=== PATIENT | female | born 1950 | race Two or more races ===

== ENCOUNTER 2021-08-27 01:43 | Emergency (ER) | payer MEDICARE, OTHER ==
[~2021-08-27] VITALS: Ht 162.6 cm; Wt 71.2 kg
--- NOTE | 2021-08-27 01:55 | NUR ---
ODALYS FROM HOME TO ER BED 10. AAOX4. NOT IN RESP DISTRESS, BREATHING EVEN AND UNLABORED. BROUGHT IN FOR NAUSEA, HEARTBURN AND PALPITATION. PER PT, SHE STARTED HAVING NAUSEA AND HEARTBURN @ 0000 THEN STARTED HAVING THE PALPITATION. PT DENIES ANY CHEST PAIN. EKG OREDERED. PT IS PLACED ON MONITOR. MD AT BEDSIDE FOR EVAL
[2021-08-27] MEDS ORDERED: IV NS 0.9% 1,000 ML BAG IV ONE (02:30)
[2021-08-27 02:48] LABS: BASOPHILS % (AUTO) 0.4 % (0.0-2.0); EOSINOPHILS % (AUTO) 1.6 % (0.0-6.0); HEMATOCRIT 39 % (33-45); HEMOGLOBIN 13.3 g/dL (11.5-14.8); LYMPHOCYTES # (AUTO) 2.7 K/uL (0.8-4.8); LYMPHOCYTES % (AUTO) 32.9 % (20.0-44.0); MEAN CORPUSCULAR HGB CONC 34 g/dl (31.0-36.0); MEAN CORPUSCULAR VOLUME 85 fL (82-100); MONOCYTES # (AUTO) 0.5 K/uL (0.1-1.30); MONOCYTES % (AUTO) 6.2 % (2.0-12.0); NEUTROPHILS # (AUTO) 4.8 K/uL (1.8-8.9); NEUTROPHILS % (AUTO) 58.9 % (43.0-81.0); PLATELET COUNT (AUTO) 168 K/uL (150-450); RED BLOOD CELL COUNT(AUTO) 4.56 MIL/uL (4.0-5.2); WHITE BLOOD COUNT (AUTO) 8.1 K/uL (4.3-11.0)
[2021-08-27 03:11] LABS: CALCIUM, SERUM 8.8 mg/dL (8.5-10.1); CARBON DIOXIDE 32 mmol/L (21-32); CHLORIDE 104 mmol/L (98-107); CREATININE 0.9 mg/dL (0.6-1.3); GLUCOSE 149 mg/dL (74-106); POTASSIUM 3.6 mmol/L (3.5-5.1); SODIUM SERUM 143 mmol/L (136-145); UREA NITROGEN, BLOOD 21 mg/dL (7-18)
[2021-08-27 03:20] LABS: ALANINE AMINOTRANSFERASE 20 U/L (12-78); ALBUMIN 3.8 g/dL (3.4-5.0); ALKALINE PHOSPHATASE 77 U/L (46-116); ASPARTATE AMINOTRANSFERASE 14 U/L (15-37); BILIRUBIN,DIRECT 0.1 mg/dL (0.0-0.2); BILIRUBIN,TOTAL 0.3 mg/dL (0.2-1.0); LIPASE 168 U/L (73-393)
--- NOTE | 2021-08-27 03:30 | NUR ---
CALLED [facility] FOR EXAM.
[2021-08-27 04:30] VITALS: BP 145/70
[2021-08-27] MEDS ORDERED: PANT20TA2 PO (05:18)
[2021-08-27] MEDS ORDERED: ONDA4TAB11 PO (05:18)
--- NOTE | 2021-08-27 05:19 | NUR ---
CALLED [facility] FOR EXAM.
--- NOTE | 2021-08-27 06:48 | NUR ---
CALLED FOR TAXI
--- NOTE | 2021-08-27 07:08 | NUR ---
Patient discharged to home in stable condition. Written and verbal after care instructions given. Patient verbalizes understanding of instruction.
== END 2021-08-27 07:08 | disposition home or self-care (01) ==
LOC: ER 01:44
DX: R11.0 Nausea (principal); I10 Essential (primary) hypertension; E11.9 Type 2 diabetes mellitus without complications; Z79.4 Long term (current) use of insulin; Z85.850 Personal history of malignant neoplasm of thyroid; Z60.2 Problems related to living alone; Z79.899 Other long term (current) drug therapy
CPT/HCPCS: 36415; 71045; 80048; 80076; 83690; 84484 ×2; 85025; 93005; 96360; 99285; J7030